=== PATIENT | female | born 1965 | race Caucasian/White ===

== ENCOUNTER 2018-04-30 11:43 | Inpatient (IN) | payer OTHER ==
[~2018-04-30] VITALS: Ht 170.2 cm; Wt 89.4 kg
[2018-04-30] MEDS ORDERED: METO-396 PO (11:46)
[2018-04-30] MEDS ORDERED: METF-815 PO (11:46)
[2018-04-30] MEDS ORDERED: LISI2.5T47 PO (11:46)
[2018-04-30] MEDS ORDERED: FOLIC ACID 1 MG, THIAMINE HCL 100 MG, MVI, ADULT NO.1 10 ML in DEXTROSE 5% WATER 1,000 ML IV ONE ×8 (12:15→13:00)
[2018-04-30 12:37] LABS: BASOPHILS % 0.4 % (0.0-2.0); HEMATOCRIT. 40.7 % (36.0-48.0); HEMOGLOBIN. 13.4 g/dL (12.0-16.0); LYMPHOCYTES % 9.2 % (20.0-50.0); MEAN CORPUSCULAR HEMOGLOBIN 29.7 pg (28.0-32.0); MEAN CORPUSCULAR VOLUME 90.3 fL (81.0-99.0); MEAN PLATELET VOLUME 8.7 fl (7.4-10.4); MONOCYTES % 9.4 % (2.0-8.0); PLATELET 198 x1000/uL (130-400); RED BLOOD CELL COUNT 4.51 mill/uL (4.2-5.4); RED CELL DISTRIBUTION WIDTH 14.2 % (11.6-14.6)
[2018-04-30 12:43] LABS: CHLORIDE 103 mEq/L (98-107)
[2018-04-30 12:49] LABS: ETHANOL BLOOD 203 mg/dL
[2018-04-30 13:16] LABS: CLARITY URINE TURBID (CLEAR); COLOR URINE DARK YELLOW (YELLOW); KETONES URINE TRACE (NEGATIVE); LEUKOCYTE ESTERASE URINE 3+ (NEGATIVE); NITRITE URINE NEGATIVE (NEGATIVE); OCCULT BLOOD URINE 3+ (NEGATIVE); PROTEIN URINE 2+ (NEGATIVE); SPECIFIC GRAVITY URINE 1.017 (1.005-1.030)
[2018-04-30 13:55] LABS: *AMPHETAMINES SCREEN URINE NEGATIVE (NEGATIVE); *BARBITURATES SCREEN URINE NEGATIVE (NEGATIVE); *BENZODIAZEPINES SCREEN URINE NEGATIVE (NEGATIVE)
[2018-04-30 13:56] LABS: *COCAINE SCREEN URINE NEGATIVE (NEGATIVE); CANNABINOID URINE SCREEN NEGATIVE (NEGATIVE); OPIATES URINE SCREEN NEGATIVE (NEGATIVE); PHENCYCLIDINE URINE SCREEN NEGATIVE (NEGATIVE)
[2018-04-30 14:02] LABS: METHADONE URINE SCREEN NEGATIVE (NEGATIVE)
[2018-04-30] MEDS ORDERED: SODIUM CHLORIDE 0.9% 1000ML BAG (SEPSIS BOLUS) IV ONE (15:00)
[2018-04-30] MEDS ORDERED: CEFTRIAXONE 1 G PREMIX 50 ML IV ONE (15:00)
[2018-04-30] MEDS ORDERED: NITROGLYCERIN 0.4MG TABLET SL SL PRN (16:00)
[2018-04-30] MEDS ORDERED: MAGNESIUM/ALUMINUM HYDROXIDE/SIMETHICONE 30ML UDC PO PRN (16:00)
[2018-04-30] MEDS ORDERED: DOCUSATE SODIUM 100MG CAPSULE PO PRN (16:00)
[2018-04-30] MEDS ORDERED: IPRATROPIUM/ALBUTEROL 0.5-3(2.5)MG/3ML NEB INH PRN (16:00)
[2018-04-30] MEDS ORDERED: LORAZEPAM 2MG/ML CPJ IV PRN (16:00)
[2018-04-30] MEDS ORDERED: NA PHOS,M-B/NA PHOS,DI-BA ENEMA 118ML PR PRN (16:00)
[2018-04-30] MEDS ORDERED: TRAMADOL 50MG TABLET PO PRN (16:00)
[2018-04-30] MEDS ORDERED: GUAIFENESIN 200MG/10ML SUGAR FREE UDC PO PRN (16:00)
[2018-04-30] MEDS: ONDANSETRON HCL 4MG/2ML INJ IV PRN ×2 (17:51→23:25)
[2018-04-30] MEDS ORDERED: CHLORDIAZEPOXIDE 5 MG CAPSULE PO SCH (19:00)
[2018-04-30] MEDS ORDERED: DEXTROSE 50% WATER 50ML SYRINGE IV PRN (19:15)
[2018-04-30 21:15] VITALS: BP 155/54
[2018-04-30] MEDS ORDERED: MVI, ADULT NO.1 10 ML, FOLIC ACID 1 MG, THIAMINE HCL 100 MG in SODIUM CHLORIDE 0.9% 1,0... IV NR ×4 (23:00)
[2018-04-30] MEDS: CHLORDIAZEPOXIDE 5 MG CAPSULE PO SCH (23:13)
[2018-04-30] MEDS: INSULIN LISPRO 100 UNITS/ML SUBCUT SCH (23:17)
[2018-05-01] MEDS ORDERED: LEVOFLOXACIN 500MG PREMIX 100 ML IV NR
[2018-05-01] MEDS: ACETAMINOPHEN 325MG TABLET PO PRN ×3 (00:31→20:24)
[2018-05-01] MEDS: ZOLPIDEM TARTRATE 5MG TABLET PO PRN ×2 (00:31→22:07)
[2018-05-01 00:35] VITALS: BP 126/49
[2018-05-01] MEDS ORDERED: PROP20TA7 PO (03:27)
[2018-05-01] MEDS ORDERED: METO-539 PO (03:27)
[2018-05-01] MEDS ORDERED: GABA-290 PO (03:27)
[2018-05-01] MEDS ORDERED: CLON0.1T PO (03:27)
[2018-05-01] MEDS ORDERED: SERT50TA12 PO (03:27)
[2018-05-01] MEDS ORDERED: BUPR-43 PO (03:27)
[2018-05-01] MEDS ORDERED: METF-816 PO (03:27)
[2018-05-01] MEDS ORDERED: CHOL100022 PO (03:27)
[2018-05-01] MEDS ORDERED: QUET100T33 PO (03:27)
[2018-05-01] MEDS ORDERED: HYDR50SY PO (03:27)
[2018-05-01] MEDS ORDERED: LISI40TA4 PO (03:27)
[2018-05-01 04:00] VITALS: BP 129/72
[2018-05-01] MEDS: CHLORDIAZEPOXIDE 5 MG CAPSULE PO SCH (06:04)
[2018-05-01] MEDS: BLOOD SUGAR DIAGNOSTIC STRIP TEST SCH ×4 (06:23→20:24)
[2018-05-01] MEDS: SUCRALFATE 1 G/10 ML UDC PO SCH ×4 (06:23→20:24)
[2018-05-01] MEDS: INSULIN LISPRO 100 UNITS/ML SUBCUT SCH ×4 (07:33→20:40)
[2018-05-01 08:00] VITALS: BP 157/77
[2018-05-01] MEDS: ENOXAPARIN 30MG/0.3ML SYR SUBCUT SCH (08:11)
[2018-05-01] MEDS: FAMOTIDINE 20MG TABLET PO SCH (08:12)
[2018-05-01] MEDS: SODIUM CHLORIDE 0.9% 1,000 ML IV SCH ×2 (08:16→16:58)
[2018-05-01] MEDS ORDERED: CEFTRIAXONE 1 G PREMIX 50 ML IV SCH ×2 (09:00→15:00)
[2018-05-01 12:00] VITALS: BP 160/73
[2018-05-01] MEDS: ONDANSETRON HCL 4MG/2ML INJ IV PRN (12:45)
[2018-05-01] MEDS: CHLORDIAZEPOXIDE 25MG CAPSULE PO SCH ×2 (14:09→21:41)
[2018-05-01 16:21] VITALS: BP 196/92
[2018-05-01] MEDS: CLONIDINE 0.1MG TABLET PO PRN (16:24)
[2018-05-01 16:37] LABS: CHLORIDE 108 mEq/L (98-107)
[2018-05-01 16:45] LABS: BASOPHILS % 0.3 % (0.0-2.0); EOSINOPHILS % 0.2 % (0.0-5.0); HEMATOCRIT. 34.8 % (36.0-48.0); HEMOGLOBIN. 11.7 g/dL (12.0-16.0); LYMPHOCYTES % 15.7 % (20.0-50.0); MEAN CORPUSCULAR HEMOGLOBIN 29.7 pg (28.0-32.0); MEAN CORPUSCULAR VOLUME 88.5 fL (81.0-99.0); MEAN PLATELET VOLUME 9.2 fl (7.4-10.4); MONOCYTES % 11.5 % (2.0-8.0); NEUTROPHILS % 72.3 % (40.0-76.0); PLATELET 109 x1000/uL (130-400); RED BLOOD CELL COUNT 3.94 mill/uL (4.2-5.4); RED CELL DISTRIBUTION WIDTH 14.2 % (11.6-14.6)
[2018-05-01 20:42] VITALS: BP 158/68
[2018-05-01] MEDS: LEVOFLOXACIN 250MG PREMIX 50 ML IV SCH (23:54)
[2018-05-02] VITALS: BP 156/77
[2018-05-02] MEDS: SODIUM CHLORIDE 0.9% 1,000 ML IV SCH ×2 (04:13→12:13)
[2018-05-02 04:38] VITALS: BP 149/78
[2018-05-02] MEDS: CHLORDIAZEPOXIDE 25MG CAPSULE PO SCH ×3 (06:25→21:03)
[2018-05-02] MEDS: BLOOD SUGAR DIAGNOSTIC STRIP TEST SCH ×4 (06:25→21:03)
[2018-05-02] MEDS: SUCRALFATE 1 G/10 ML UDC PO SCH ×4 (06:25→21:03)
[2018-05-02] MEDS: INSULIN LISPRO 100 UNITS/ML SUBCUT SCH ×4 (07:50→21:00)
[2018-05-02 08:00] VITALS: BP 182/91
[2018-05-02] MEDS: FAMOTIDINE 20MG TABLET PO SCH (08:46)
[2018-05-02] MEDS: ENOXAPARIN 30MG/0.3ML SYR SUBCUT SCH (08:47)
[2018-05-02 12:13] VITALS: BP 158/78
[2018-05-02] MEDS: CEFTRIAXONE 1 G PREMIX 50 ML IV SCH (15:17)
[2018-05-02 15:53] LABS: CHLORIDE 111 mEq/L (98-107)
[2018-05-02 16:20] VITALS: BP 158/72
[2018-05-02] MEDS ORDERED: POTASSIUM CHLORIDE 20MEQ TABLET SR PO NR (16:51)
[2018-05-02] MEDS ORDERED: SODIUM PHOS,M-BASIC-D-BASIC 20 MM in DEXT 5% WATER 243.3333 ML IV ONE (18:15)
[2018-05-02] MEDS ORDERED: POTASSIUM PHOS,M-BASIC-D-BASIC 20 MMOL in DEXT 5% WATER 243.3333 ML IV NR (20:00)
[2018-05-02 20:35] VITALS: BP 167/86
[2018-05-02] MEDS: ZOLPIDEM TARTRATE 5MG TABLET PO PRN (21:17)
[2018-05-02] MEDS: LEVOFLOXACIN 250MG PREMIX 50 ML IV SCH (23:36)
[2018-05-03 00:44] VITALS: BP 161/92
[2018-05-03 04:00] VITALS: BP 157/93
[2018-05-03] MEDS: SUCRALFATE 1 G/10 ML UDC PO SCH ×4 (06:23→21:12)
[2018-05-03] MEDS: CHLORDIAZEPOXIDE 25MG CAPSULE PO SCH ×3 (06:24→21:12)
[2018-05-03] MEDS: BLOOD SUGAR DIAGNOSTIC STRIP TEST SCH ×4 (06:24→21:25)
[2018-05-03] MEDS: INSULIN LISPRO 100 UNITS/ML SUBCUT SCH ×4 (07:50→21:00)
[2018-05-03 08:00] VITALS: BP 183/100
[2018-05-03] MEDS: FAMOTIDINE 20MG TABLET PO SCH ×2 (09:27→21:12)
[2018-05-03] MEDS: SODIUM CHLORIDE 0.9% 1,000 ML IV SCH ×3 (09:28→20:00)
[2018-05-03] MEDS: ENOXAPARIN 30MG/0.3ML SYR SUBCUT SCH (09:28)
[2018-05-03 12:00] VITALS: BP 179/91
[2018-05-03 13:46] LABS: CHLORIDE 112 mEq/L (98-107)
[2018-05-03] MEDS: CEFTRIAXONE 1 G PREMIX 50 ML IV SCH (14:12)
[2018-05-03] MEDS: CLONIDINE 0.1MG TABLET PO PRN (14:12)
[2018-05-03 16:00] VITALS: BP 146/76
[2018-05-03 20:24] VITALS: BP 158/85
[2018-05-03] MEDS: ZOLPIDEM TARTRATE 5MG TABLET PO PRN (21:13)
[2018-05-04] VITALS: BP 155/90
[2018-05-04] MEDS: LEVOFLOXACIN 250MG PREMIX 50 ML IV SCH ×2 (00:17→23:07)
[2018-05-04 04:42] VITALS: BP 145/50
[2018-05-04] MEDS: SUCRALFATE 1 G/10 ML UDC PO SCH ×4 (06:07→21:24)
[2018-05-04] MEDS: CHLORDIAZEPOXIDE 25MG CAPSULE PO SCH (06:07)
[2018-05-04] MEDS: BLOOD SUGAR DIAGNOSTIC STRIP TEST SCH ×4 (06:57→21:26)
[2018-05-04] MEDS: INSULIN LISPRO 100 UNITS/ML SUBCUT SCH ×4 (07:50→21:25)
[2018-05-04 08:00] VITALS: BP 160/80
[2018-05-04] MEDS: ENOXAPARIN 40MG/0.4ML SYR SUBCUT SCH (09:00)
[2018-05-04] MEDS: FAMOTIDINE 20MG TABLET PO SCH ×2 (09:02→21:25)
[2018-05-04 11:39] VITALS: BP 162/86
[2018-05-04] MEDS: CHLORDIAZEPOXIDE 5 MG CAPSULE PO SCH ×2 (14:22→21:25)
[2018-05-04] MEDS: CEFTRIAXONE 1 G PREMIX 50 ML IV SCH (14:23)
[2018-05-04 15:33] VITALS: BP 184/79
[2018-05-04] MEDS: CLONIDINE 0.1MG TABLET PO PRN (15:43)
[2018-05-04 18:44] VITALS: BP 160/83
[2018-05-04] MEDS: ZOLPIDEM TARTRATE 5MG TABLET PO PRN (21:25)
[2018-05-05] VITALS: BP 138/46
[2018-05-05 04:00] VITALS: BP 150/90
[2018-05-05] MEDS: CHLORDIAZEPOXIDE 5 MG CAPSULE PO SCH ×3 (06:17→21:15)
[2018-05-05] MEDS: SUCRALFATE 1 G/10 ML UDC PO SCH ×4 (06:17→21:14)
[2018-05-05 07:05] LABS: HEMATOCRIT. 34.5 % (36.0-48.0); HEMOGLOBIN. 11.5 g/dL (12.0-16.0); MEAN CORPUSCULAR VOLUME 90.1 fL (81.0-99.0); MEAN PLATELET VOLUME 8.2 fl (7.4-10.4); PLATELET 90 x1000/uL (130-400); RED BLOOD CELL COUNT 3.82 mill/uL (4.2-5.4); RED CELL DISTRIBUTION WIDTH 14.3 % (11.6-14.6)
[2018-05-05] MEDS: BLOOD SUGAR DIAGNOSTIC STRIP TEST SCH ×4 (07:20→21:15)
[2018-05-05] MEDS: INSULIN LISPRO 100 UNITS/ML SUBCUT SCH ×4 (07:50→21:00)
[2018-05-05 08:00] VITALS: BP 155/81
[2018-05-05 08:03] LABS: CHLORIDE 108 mEq/L (98-107)
[2018-05-05 08:09] LABS: PHOSPHORUS 2.8 mg/dL (2.5-4.9)
[2018-05-05] MEDS: FAMOTIDINE 20MG TABLET PO SCH ×2 (08:21→21:14)
[2018-05-05] MEDS: ENOXAPARIN 40MG/0.4ML SYR SUBCUT SCH (08:21)
[2018-05-05] MEDS ORDERED: POTASSIUM CHLORIDE 20MEQ/PACKET PO NR (11:15)
[2018-05-05 12:00] VITALS: BP 177/89
[2018-05-05] MEDS: CEFTRIAXONE 1 G PREMIX 50 ML IV SCH (15:00)
[2018-05-05 15:29] LABS: PLATELET ESTIMATE DECREASED
[2018-05-05 16:00] VITALS: BP 166/76
[2018-05-05 20:00] VITALS: BP 158/72
[2018-05-06] VITALS (7 sets, daily range): BP systolic 144–184; BP diastolic 65–112
[2018-05-06] MEDS: LEVOFLOXACIN 250MG PREMIX 50 ML IV SCH (00:05)
[2018-05-06] MEDS: CLONIDINE 0.1MG TABLET PO PRN ×3 (04:36→16:47)
[2018-05-06] MEDS: SUCRALFATE 1 G/10 ML UDC PO SCH ×3 (06:27→17:30)
[2018-05-06] MEDS: BLOOD SUGAR DIAGNOSTIC STRIP TEST SCH ×3 (06:28→17:30)
[2018-05-06] MEDS: CHLORDIAZEPOXIDE 5 MG CAPSULE PO SCH ×2 (06:28→16:20)
[2018-05-06] MEDS: INSULIN LISPRO 100 UNITS/ML SUBCUT SCH ×3 (07:49→17:33)
[2018-05-06] MEDS: ENOXAPARIN 40MG/0.4ML SYR SUBCUT SCH (08:04)
[2018-05-06] MEDS: FAMOTIDINE 20MG TABLET PO SCH (08:04)
[2018-05-06] MEDS ORDERED: AMLODIPINE 10MG TABLET PO SCH (09:30)
[2018-05-06] MEDS: CEFTRIAXONE 1 G PREMIX 50 ML IV SCH (16:20)
== END 2018-05-06 20:00 | disposition home or self-care (01) | DRG 871 ==
LOC: ER 12:11 → 6WST 15:13 → SUPCPDRO 15:52 → ENRESERV 19:35
PROVIDERS: ADMIT Internal Medicine; ATTEND Internal Medicine
DX: A41.9 Sepsis, unspecified organism (principal); N17.0 Acute kidney failure with tubular necrosis; G92 Toxic encephalopathy; E43 Unspecified severe protein-calorie malnutrition; N39.0 Urinary tract infection, site not specified; F10.239 Alcohol dependence with withdrawal, unspecified; F16.10 Hallucinogen abuse, uncomplicated; E66.01 Morbid (severe) obesity due to excess calories; Z68.30 Body mass index [BMI] 30.0-30.9, adult; E11.9 Type 2 diabetes mellitus without complications; E78.00 Pure hypercholesterolemia, unspecified; E78.5 Hyperlipidemia, unspecified; I10 Essential (primary) hypertension; K76.0 Fatty (change of) liver, not elsewhere classified; Z88.2 Allergy status to sulfonamides; Z88.9 Allergy status to unspecified drugs, medicaments and biological substances; Z79.4 Long term (current) use of insulin; B96.20 Unspecified Escherichia coli [E. coli] as the cause of diseases classified elsewhere
CPT/HCPCS: 36415; 71045; 74176; 76770; 80048; 80061; 80305; 82962; 83036; 83605; 83735; 83880; 84100; 87077; 87186; 93005; 93306; 93970; 96365; 96366; 96367; 96375; 97116; 97162; 97166; 97530; 99291; C1893; G0482; J0696; J1650; J1815; J1956; J2060; J2405; J3411; J3490; J7030; J7040; J7060; J7070